=== PATIENT | male | born 1940 | race Caucasian/White ===

== ENCOUNTER 2020-08-25 11:07 | Emergency (ER) | payer MEDICARE ==
[~2020-08-25] VITALS: Ht 182.9 cm; Wt 81.8 kg
[2020-08-25 11:56] LABS: BASOPHILS % (AUTO) 0.3 % (0-1); EOSINOPHILS # (AUTO) 0.1 X10'3 (0-0.9); EOSINOPHILS % (AUTO) 0.8 % (0-6); HEMATOCRIT 38.8 % (42.0-52.0); HEMOGLOBIN 12.8 g/dl (14.0-17.9); LYMPHOCYTES # (AUTO) 0.7 X10'3 (1.1-4.8); LYMPHOCYTES % (AUTO) 5.5 % (21-51); MEAN CORPUSCULAR HEMOGLOBIN 30.5 PG (27.0-31.0); MEAN CORPUSCULAR HGB CONC 32.9 g/dL (33.0-36.5); MEAN CORPUSCULAR VOLUME 92.6 FL (78-98); MEAN PLATELET VOLUME 9.1 FL (7.4-10.4); MONOCYTES # (AUTO) 0.9 X10'3 (0-0.9); NEUTROPHILS # (AUTO) 10.1 X10'3 (1.8-7.7); NEUTROPHILS % (AUTO) 85.4 % (42-75); PLATELET COUNT 281 X10'3 (140-440); RED BLOOD COUNT 4.19 X10'6 (4.70-6.10); RED CELL DISTRIBUTION WIDTH 13.9 % (11.5-14.5); WHITE BLOOD COUNT 11.8 X10'3 (4.5-11.0)
[2020-08-25] MEDS ORDERED: normal saline 1000ML IV soln IVB ONE (12:05)
[2020-08-25] MEDS ORDERED: pantoprazole 40 MG vial IV ONE (12:05)
[2020-08-25 12:10] LABS: ALANINE AMINOTRANSFERASE 41 U/L (12-78); ALBUMIN 2.8 G/DL (3.4-5.0); ALBUMIN/GLOBULIN RATIO 0.6 (1.1-1.5); ALKALINE PHOSPHATASE 107 IU/L (46-116); ANION GAP 11 (8-16); ASPARTATE AMINO TRANSFERASE 44 U/L (10-37); BILIRUBIN,TOTAL 0.8 MG/DL (0.1-1.0); BLOOD UREA NITROGEN 28 MG/DL (7-18); BUN/CREATININE RATIO 21.5 (5.4-32.0); CALCIUM 9.1 MG/DL (8.5-10.1); CHLORIDE 100 MMOL/L (99-107); GLUCOSE 167 MG/DL (70-104); LIPASE 143 U/L (73-393); POTASSIUM 4.6 MMOL/L (3.5-5.1); SODIUM 137 MMOL/L (135-145); TOTAL PROTEIN 7.5 G/DL (6.4-8.2); eGFR 53 ML/MIN
[2020-08-25 12:39] LABS: PARTIAL THROMBOPLASTIN TIME 22 SECONDS (22-32)
--- NOTE | 2020-08-25 12:47 | NUR ---
SID MCGUIRE REPORTS HEMOCULT IS POSITIVE DUE TO PT HAVING HEMORRHOIDS.
--- NOTE | 2020-08-25 12:59 | NUR ---
PT TO CT VIA WHEELCHAIR
[2020-08-25] MEDS ORDERED: ondansetron/PF 4mg/2ml inj IV ONE (13:05)
[2020-08-25] MEDS ORDERED: HYDR25SU32 RC (14:11)
[2020-08-25] MEDS ORDERED: POLY17PO10 PO (14:11)
[2020-08-25 14:22] VITALS: BP 152/82
== END 2020-08-25 14:25 | disposition home or self-care (01) ==
LOC: ER 11:07
DX: S22.070A Wedge compression fracture of T9-T10 vertebra, initial encounter for closed fracture (principal); R18.8 Other ascites; K74.60 Unspecified cirrhosis of liver; K64.9 Unspecified hemorrhoids; K59.00 Constipation, unspecified; I71.4 Abdominal aortic aneurysm, without rupture; R19.7 Diarrhea, unspecified; R06.02 Shortness of breath; F12.90 Cannabis use, unspecified, uncomplicated; Z86.73 Personal history of transient ischemic attack (TIA), and cerebral infarction without residual deficits; Z90.89 Acquired absence of other organs; Z72.89 Other problems related to lifestyle; Z88.0 Allergy status to penicillin; Z79.899 Other long term (current) drug therapy; X58.XXXA Exposure to other specified factors, initial encounter; Y93.89 Activity, other specified; Y92.89 Other specified places as the place of occurrence of the external cause; Y99.8 Other external cause status
CPT/HCPCS: 36415; 74176; 80053; 83690; 83880; 85025; 85610; 85730; 86885; 86900; 86901; 96361; 96374; 96375; 99284; C9113; J2405; J7030

== ENCOUNTER 2020-09-01 14:30 | Inpatient (IN) | payer MEDICARE ==
[~2020-09-01] VITALS: Ht 182.9 cm; Wt 82.0 kg
[~2020-09-01 14:30] MED LIST: HYDR25SU32 RC; POLY17PO10 PO
--- NOTE | 2020-09-01 15:06 | NUR ---
VU MOORE PHONE #[phone]
[2020-09-01 15:24] LABS: BASOPHILS % (AUTO) 0.2 % (0-1); EOSINOPHILS % (AUTO) 0.1 % (0-6); HEMATOCRIT 33.4 % (42.0-52.0); HEMOGLOBIN 10.7 g/dl (14.0-17.9); LYMPHOCYTES # (AUTO) 0.9 X10'3 (1.1-4.8); MEAN CORPUSCULAR HEMOGLOBIN 29.6 PG (27.0-31.0); MEAN CORPUSCULAR HGB CONC 32.2 g/dL (33.0-36.5); MEAN CORPUSCULAR VOLUME 91.9 FL (78-98); MEAN PLATELET VOLUME 10.1 FL (7.4-10.4); MONOCYTES # (AUTO) 1.3 X10'3 (0-0.9); MONOCYTES % (AUTO) 6.9 % (2-12); NEUTROPHILS # (AUTO) 15.8 X10'3 (1.8-7.7); NEUTROPHILS % (AUTO) 87.8 % (42-75); PLATELET COUNT 276 X10'3 (140-440); RED BLOOD COUNT 3.63 X10'6 (4.70-6.10); RED CELL DISTRIBUTION WIDTH 14.1 % (11.5-14.5)
[2020-09-01 15:38] LABS: PARTIAL THROMBOPLASTIN TIME 24 SECONDS (22-32)
[2020-09-01 15:39] LABS: ALANINE AMINOTRANSFERASE 41 U/L (12-78); ALBUMIN 2.5 G/DL (3.4-5.0); ALBUMIN/GLOBULIN RATIO 0.6 (1.1-1.5); ALKALINE PHOSPHATASE 107 IU/L (46-116); ANION GAP 8 (8-16); ASPARTATE AMINO TRANSFERASE 52 U/L (10-37); BILIRUBIN,TOTAL 0.8 MG/DL (0.1-1.0); BLOOD UREA NITROGEN 32 MG/DL (7-18); BUN/CREATININE RATIO 20.8 (5.4-32.0); CALCIUM 8.7 MG/DL (8.5-10.1); CHLORIDE 104 MMOL/L (99-107); CREATININE 1.54 MG/DL (0.60-1.10); GLUCOSE 175 MG/DL (70-104); POTASSIUM 4.7 MMOL/L (3.5-5.1); SODIUM 138 MMOL/L (135-145); TOTAL CARBON DIOXIDE 25.7 MMOL/L (24-32); TOTAL PROTEIN 6.5 G/DL (6.4-8.2); eGFR 44 ML/MIN
[2020-09-01] MEDS ORDERED: pantoprazole 40 MG vial IV ONE (16:05)
[2020-09-01] MEDS ORDERED: acetaminophen 325mg tablet PO PRN ×2 (17:25)
[2020-09-01] MEDS ORDERED: ondansetron/PF 4mg/2ml inj IV PRN (17:25)
[2020-09-01] MEDS ORDERED: morphine 2 MG/ML inj. syringe IV PRN ×2 (17:25)
[2020-09-01] MEDS ORDERED: magnesium hydroxide 30ml (MOM) UD suspension PO PRN (17:25)
[2020-09-01] MEDS ORDERED: mag hydrox/Alum hydrox/simeth 30ml oral suspension PO PRN (17:25)
[2020-09-01] MEDS ORDERED: PEG 3350/Na sulf,bicarb,Cl/KCl oral sol 4 liter bottle PO ONE (17:25)
[2020-09-01] MEDS ORDERED: METF-950 PO (17:33)
[2020-09-01] MEDS ORDERED: LOSA50TA64 PO (17:33)
[2020-09-01] MEDS: dextrose 5%-1/2 normal saline 1,000 ML IV SCH (18:24)
[2020-09-01 18:30] LABS: HEMOGLOBIN A1C 6.1 % (4.5-6.2)
[2020-09-01 18:59] LABS: CLARITY,URINE CLEAR (Clear); COLOR,URINE YELLOW (Yellow); GLUCOSE, URINE NEGATIVE (Neg); KETONES,URINE TRACE mg/dl (Neg); LEUKOCYTE ESTERASE ,URINE NEGATIVE (Neg); NITRITES, URINE NEGATIVE (Neg); OCCULT BLOOD,URINE NEGATIVE (Neg); PH,URINE 5.5 (4.8-8.0); PROTEIN,URINE TRACE mg/dl (Neg)
[2020-09-01 19:00] LABS: UA COLLECTION TYPE URINAL
[2020-09-01 19:07] LABS: BACTERIA,URINE 1+ /HPF (Neg); RBC,URINE NONE SEEN /HPF (0-2); SQUAMOUS EPITHELIAL CELL,UR MODERATE /LPF (FEW); WBC,URINE 0-4 /HPF (0-4)
[2020-09-01 19:08] LABS: HYALINE CASTS 0-3 /LPF (NEGATIVE)
--- NOTE | 2020-09-01 19:19 | NUR ---
Orthostatic VS +. Dr. Oconnell updated. Awaiting to get Golytly started.
[2020-09-01] MEDS: pantoprazole 40 MG vial IV SCH (20:09)
--- NOTE | 2020-09-01 21:46 | NUR ---
IPA 358B. PT UP ON BSC NOW WITH MORE STOOL. REPORTS HE DOES NOT WANT TO DRINK ANY MORE OF THE SOLUTION. I UPDATED HIM IT IS NECESSARY FOR HIM TO HAVE CLEAR LIQUID OUT PUT IN ORDER FOR THE COLONOSCOPY. PT HAVING INCONTINENCE OF STOOL EPISODES. SATES HE WILL TRY TO CONTINUE TO DRINK IT.
--- NOTE | 2020-09-01 22:25 | NUR ---
REPORT GIVEN TO FIDELINA SHARMA, SURGICAL. PT WITH HR 107, OTHERWISE VSS. IPA 358B.
--- NOTE | 2020-09-01 22:35 | NUR ---
Received report from FIDELINA Solo. Pt brought to room via horace, ruben to bathroom gait steady. large liq brown stool voided. partial bed bath given, amb to bed, oriented to room and routine. Addendum: 09/02/20 at 0055 by Yady Cooper RN Amended: Links added.
[2020-09-01 23:00] VITALS: BP 120/70
[2020-09-02] VITALS (17 sets, daily range): BP systolic 111–165; BP diastolic 42–84
--- NOTE | 2020-09-02 00:58 | NUR ---
turns self with ease, no complaints. pt continues to drink go lightly Addendum: 09/02/20 at 0059 by Yady Cooper RN Amended: Links added.
[2020-09-02] MEDS: dextrose 5%-1/2 normal saline 1,000 ML IV SCH (03:25)
--- NOTE | 2020-09-02 05:17 | NUR ---
[place] [facility] [place]. had about 1/4 left of himanshu have been enc pt to drink all night, states he is doing the best he can and keeps drinking as much as he can. Addendum: 09/02/20 at 0519 by Yady Cooper RN Amended: Links added.
[2020-09-02 05:59] LABS: BASOPHILS # (AUTO) 0.1 X10'3 (0-0.2); BASOPHILS % (AUTO) 0.4 % (0-1); EOSINOPHILS # (AUTO) 0.1 X10'3 (0-0.9); EOSINOPHILS % (AUTO) 0.3 % (0-6); HEMATOCRIT 28.3 % (42.0-52.0); HEMOGLOBIN 9.2 g/dl (14.0-17.9); LYMPHOCYTES # (AUTO) 1.9 X10'3 (1.1-4.8); LYMPHOCYTES % (AUTO) 11.8 % (21-51); MEAN CORPUSCULAR HEMOGLOBIN 29.8 PG (27.0-31.0); MEAN CORPUSCULAR HGB CONC 32.6 g/dL (33.0-36.5); MEAN CORPUSCULAR VOLUME 91.6 FL (78-98); MEAN PLATELET VOLUME 10.4 FL (7.4-10.4); MONOCYTES # (AUTO) 1.4 X10'3 (0-0.9); MONOCYTES % (AUTO) 8.7 % (2-12); NEUTROPHILS # (AUTO) 12.4 X10'3 (1.8-7.7); NEUTROPHILS % (AUTO) 78.8 % (42-75); PLATELET COUNT 219 X10'3 (140-440); RED BLOOD COUNT 3.09 X10'6 (4.70-6.10); RED CELL DISTRIBUTION WIDTH 14.1 % (11.5-14.5); WHITE BLOOD COUNT 15.8 X10'3 (4.5-11.0)
[2020-09-02 06:05] LABS: ALBUMIN 2.3 G/DL (3.4-5.0); ANION GAP 9 (8-16); BLOOD UREA NITROGEN 39 MG/DL (7-18); BUN/CREATININE RATIO 23.8 (5.4-32.0); CALCIUM 8.5 MG/DL (8.5-10.1); CHLORIDE 106 MMOL/L (99-107); CREATININE 1.64 MG/DL (0.60-1.10); GLUCOSE 134 MG/DL (70-104); POTASSIUM 4.6 MMOL/L (3.5-5.1); SODIUM 141 MMOL/L (135-145); TOTAL CARBON DIOXIDE 25.8 MMOL/L (24-32); eGFR 41 ML/MIN
--- NOTE | 2020-09-02 06:31 | NUR ---
Problems reprioritized. Patient report given, questions answered & plan of care reviewed with FIDELINA Jimenez. Addendum: 09/02/20 at 0631 by Yady Cooper RN Amended: Links added.
--- NOTE | 2020-09-02 06:37 | NUR ---
Patient in room [facility]. I have received report from Brielle KITCHEN and had the opportunity to ask questions and assume patient care.
[2020-09-02] MEDS: pantoprazole 40 MG vial IV SCH ×2 (07:59→20:05)
[2020-09-02 09:11] LABS: OCCULT BLOOD STOOL POSITIVE (Neg)
[2020-09-02 11:45] LABS: GLUCOSE,BODY FLUID 167 MG/DL
--- NOTE | 2020-09-02 11:52 | NUR ---
DM consult: Pt with A1c 6.1%, DM education not warranted at this time. Pt currently NPO, recommend diet advancement to regular as medically indicated. Will continue to follow. Addendum: 09/02/20 at [address] Amended: Links added.
[2020-09-02 12:13] LABS: BF RBC COUNT 140 /CU MM; BF WBC COUNT 160 /CU MM (0-1000); BFAPPEAR CLEAR; BFCOLOR COLORLESS; BFVOLUME 53 ML
[2020-09-02 12:14] LABS: BF MESOTHELIAL CELLS MODERATE; LYMPHOCYTES,BODY FLUID 67 %; MONOCYTES,BODY FLUID 23 %; NEUTROPHILS,BODY FLUID 10 %
[2020-09-02] MEDS ORDERED: MIDAZolam 5mg/5ml vial ONE (12:37)
[2020-09-02] MEDS ORDERED: fentaNYL/PF 50MCG/1 ML 2ML syringe ONE (12:37)
[2020-09-02] MEDS ORDERED: LIDOcaine Viscous 15ml cup ONE (12:38)
[2020-09-02] MEDS ORDERED: albumin (human) 25% 100 ML IV solution IV ONE (14:50)
--- NOTE | 2020-09-02 16:31 | NUR ---
Dr. Dimas paged regarding GI lab results and to clarify Echo order. Awaiting callback.
--- NOTE | 2020-09-02 18:14 | NUR ---
Problems reprioritized. Patient report given, questions answered & plan of care reviewed with Tigist Harris RN.
--- NOTE | 2020-09-02 19:05 | NUR ---
Patient in room [facility]. I have received report from FIDELINA Jimenez and had the opportunity to ask questions and assume patient care. Addendum: 09/02/20 at 1905 by Josselyn Alberts RN Amended: Links added.
[2020-09-02] MEDS: furosemide 20 MG/2 ML vial IV SCH (20:06)
[2020-09-03] VITALS: BP 104/60
[2020-09-03 05:29] LABS: EOSINOPHILS # (AUTO) 0.2 X10'3 (0-0.9); HEMOGLOBIN 7.7 g/dl (14.0-17.9); LYMPHOCYTES # (AUTO) 1.3 X10'3 (1.1-4.8); MEAN CORPUSCULAR HEMOGLOBIN 30.3 PG (27.0-31.0); MEAN CORPUSCULAR HGB CONC 33.4 g/dL (33.0-36.5); MEAN PLATELET VOLUME 9.7 FL (7.4-10.4); MONOCYTES # (AUTO) 1.1 X10'3 (0-0.9)
[2020-09-03 05:31] LABS: BASOPHILS % (AUTO) 0.4 % (0-1); EOSINOPHILS % (AUTO) 1.6 % (0-6); HEMATOCRIT 23.1 % (42.0-52.0); LYMPHOCYTES % (AUTO) 12.4 % (21-51); MEAN CORPUSCULAR VOLUME 90.7 FL (78-98); MONOCYTES % (AUTO) 10.6 % (2-12); PLATELET COUNT 179 X10'3 (140-440); RED BLOOD COUNT 2.55 X10'6 (4.70-6.10); RED CELL DISTRIBUTION WIDTH 13.7 % (11.5-14.5); WHITE BLOOD COUNT 10.7 X10'3 (4.5-11.0)
[2020-09-03 05:45] LABS: ALBUMIN 2.3 G/DL (3.4-5.0); ANION GAP 7 (8-16); BLOOD UREA NITROGEN 36 MG/DL (7-18); BUN/CREATININE RATIO 22.2 (5.4-32.0); CALCIUM 7.8 MG/DL (8.5-10.1); CHLORIDE 103 MMOL/L (99-107); CREATININE 1.62 MG/DL (0.60-1.10); GLUCOSE 124 MG/DL (70-104); POTASSIUM 3.9 MMOL/L (3.5-5.1); SODIUM 136 MMOL/L (135-145); TOTAL CARBON DIOXIDE 25.9 MMOL/L (24-32); eGFR 41 ML/MIN
--- NOTE | 2020-09-03 06:32 | NUR ---
Problems reprioritized. Patient report given, questions answered & plan of care reviewed with FIDELINA Jimenez.
--- NOTE | 2020-09-03 06:38 | NUR ---
Patient in room [facility]. I have received report from Tigist Harris RN and had the opportunity to ask questions and assume patient care.
[2020-09-03 07:13] VITALS: BP 141/61
[2020-09-03] MEDS: pantoprazole 40 MG vial IV SCH ×2 (07:54→20:31)
[2020-09-03] MEDS: furosemide 20 MG/2 ML vial IV SCH ×2 (07:54→20:31)
--- NOTE | 2020-09-03 09:45 | NUR ---
Pt refusing to ambulate at this time. Stated he might try to later.
[2020-09-03] MEDS ORDERED: pneumococcal 23-VAL P-sac vacc 25 mcg/0.5ml vial IMVAC ONE (10:00)
[2020-09-03 11:45] VITALS: BP_SYST 133; BP_SYST 141; BP_DIAS 61; BP_DIAS 66
[2020-09-03] MEDS: HYDROcodone/acetaminophen 5mg/325mg tablet PO PRN ×2 (11:54→20:36)
[2020-09-03 12:43] VITALS: BP 133/66
[2020-09-03 17:12] LABS: BASOPHILS # (AUTO) 0.1 X10'3 (0-0.2); BASOPHILS % (AUTO) 1.1 % (0-1); EOSINOPHILS # (AUTO) 0.2 X10'3 (0-0.9); EOSINOPHILS % (AUTO) 1.4 % (0-6); HEMATOCRIT 25.4 % (42.0-52.0); HEMOGLOBIN 8.3 g/dl (14.0-17.9); LYMPHOCYTES % (AUTO) 8.3 % (21-51); MEAN CORPUSCULAR HEMOGLOBIN 29.7 PG (27.0-31.0); MEAN CORPUSCULAR HGB CONC 32.5 g/dL (33.0-36.5); MEAN CORPUSCULAR VOLUME 91.4 FL (78-98); MEAN PLATELET VOLUME 9.8 FL (7.4-10.4); MONOCYTES % (AUTO) 8.6 % (2-12); NEUTROPHILS # (AUTO) 9.5 X10'3 (1.8-7.7); NEUTROPHILS % (AUTO) 80.6 % (42-75); PLATELET COUNT 205 X10'3 (140-440); RED BLOOD COUNT 2.78 X10'6 (4.70-6.10); WHITE BLOOD COUNT 11.7 X10'3 (4.5-11.0)
[2020-09-03 18:00] VITALS: BP 128/67
--- NOTE | 2020-09-03 18:20 | NUR ---
Patient in room [facility]. I have received report from Barbara KITCHEN and had the opportunity to ask questions and assume patient care.
--- NOTE | 2020-09-03 18:23 | NUR ---
Problems reprioritized. Patient report given, questions answered & plan of care reviewed with Bernarda KITCHEN.
[2020-09-03 20:00] VITALS: BP_SYST 133; BP_SYST 134; BP_DIAS 53; BP_DIAS 62
[2020-09-04] VITALS: BP_SYST 133; BP_SYST 134; BP_DIAS 53; BP_DIAS 62
[2020-09-04 05:09] LABS: ALBUMIN 2.3 G/DL (3.4-5.0); ANION GAP 6 (8-16); BLOOD UREA NITROGEN 38 MG/DL (7-18); BUN/CREATININE RATIO 22.4 (5.4-32.0); CALCIUM 7.5 MG/DL (8.5-10.1); CHLORIDE 103 MMOL/L (99-107); GLUCOSE 121 MG/DL (70-104); POTASSIUM 3.2 MMOL/L (3.5-5.1); SODIUM 135 MMOL/L (135-145); TOTAL CARBON DIOXIDE 26.4 MMOL/L (24-32); eGFR 39 ML/MIN
[2020-09-04 05:10] LABS: BASOPHILS # (AUTO) 0.1 X10'3 (0-0.2); BASOPHILS % (AUTO) 0.6 % (0-1); EOSINOPHILS # (AUTO) 0.2 X10'3 (0-0.9); EOSINOPHILS % (AUTO) 2.3 % (0-6); HEMATOCRIT 24.5 % (42.0-52.0); HEMOGLOBIN 8.1 g/dl (14.0-17.9); LYMPHOCYTES # (AUTO) 1.5 X10'3 (1.1-4.8); LYMPHOCYTES % (AUTO) 14.2 % (21-51); MEAN CORPUSCULAR HEMOGLOBIN 29.8 PG (27.0-31.0); MEAN CORPUSCULAR HGB CONC 32.8 g/dL (33.0-36.5); MEAN CORPUSCULAR VOLUME 90.6 FL (78-98); MEAN PLATELET VOLUME 9.9 FL (7.4-10.4); MONOCYTES # (AUTO) 1.1 X10'3 (0-0.9); MONOCYTES % (AUTO) 10.9 % (2-12); NEUTROPHILS # (AUTO) 7.4 X10'3 (1.8-7.7); PLATELET COUNT 177 X10'3 (140-440); RED BLOOD COUNT 2.71 X10'6 (4.70-6.10); RED CELL DISTRIBUTION WIDTH 13.5 % (11.5-14.5); WHITE BLOOD COUNT 10.3 X10'3 (4.5-11.0)
--- NOTE | 2020-09-04 06:18 | NUR ---
Problems reprioritized. Patient report given, questions answered & plan of care reviewed with Amarilis KITCHEN.
--- NOTE | 2020-09-04 06:32 | NUR ---
Patient in room [facility]. I have received report from FIDELINA Menchaca and had the opportunity to ask questions and assume patient care.
[2020-09-04 07:00] VITALS: BP 122/64
[2020-09-04] MEDS: furosemide 20 MG/2 ML vial IV SCH (08:03)
[2020-09-04] MEDS: pantoprazole 40 MG vial IV SCH (08:04)
[2020-09-04] MEDS: HYDROcodone/acetaminophen 5mg/325mg tablet PO PRN (08:04)
[2020-09-04] MEDS ORDERED: FURO40TA4 PO (10:55)
[2020-09-04] MEDS ORDERED: SPIR100T5 PO (10:55)
[2020-09-04] MEDS ORDERED: METF-950 PO (10:55)
[2020-09-04 11:00] VITALS: BP 115/67
[2020-09-04] MEDS ORDERED: DEXL60CA3 PO (12:04)
[2020-09-04 13:29] LABS: HBSAG SCREEN Negative (Negative); HEPATITIS C ANTIBODY >11.0 s/co ratio (0.0-0.9)
[2020-09-04] MEDS ORDERED: pantoprazole 40mg Tablet.DR PO SCH (20:00)
== END 2020-09-04 16:08 | disposition home or self-care (01) | DRG 432 ==
LOC: ER 14:30 → ED HOLD 17:24 → SUR 3N 22:30
PROVIDERS: ADMIT Internal Medicine; ATTEND Internal Medicine
PROC: 0W9G3ZZ Drainage of Peritoneal Cavity, Percutaneous Approach (ICD-10-PCS; principal; 2020-09-02)
PROC: 3E0234Z Introduction of Serum, Toxoid and Vaccine into Muscle, Percutaneous Approach (ICD-10-PCS; 2020-09-03)
DX: K74.60 Unspecified cirrhosis of liver (principal); I85.11 Secondary esophageal varices with bleeding; K29.61 Other gastritis with bleeding; R18.8 Other ascites; N17.9 Acute kidney failure, unspecified; D62 Acute posthemorrhagic anemia; D72.829 Elevated white blood cell count, unspecified; E11.22 Type 2 diabetes mellitus with diabetic chronic kidney disease; I12.9 Hypertensive chronic kidney disease with stage 1 through stage 4 chronic kidney disease, or unspecified chronic kidney disease; N18.30 Chronic kidney disease, stage 3 unspecified; E88.09 Other disorders of plasma-protein metabolism, not elsewhere classified; F12.90 Cannabis use, unspecified, uncomplicated; K62.89 Other specified diseases of anus and rectum; K72.90 Hepatic failure, unspecified without coma; R14.0 Abdominal distension (gaseous); Z79.84 Long term (current) use of oral hypoglycemic drugs; Z79.899 Other long term (current) drug therapy; Z86.73 Personal history of transient ischemic attack (TIA), and cerebral infarction without residual deficits; Z87.891 Personal history of nicotine dependence; Z90.49 Acquired absence of other specified parts of digestive tract; Z23 Encounter for immunization; Z88.0 Allergy status to penicillin
CPT/HCPCS: 36415; 43239; 45378; 49083; 71045; 80048; 80053; 81001; 82272; 82945; 82948; 83036; 83880; 85025; 85610; 85730; 86803; 86885; 86900; 86901; 87070; 87081; 87340; 89051; 90732; 93306; 99152; 99153; 99285; A4620; C9113; G0378; J1940; J2250; J3010; J7040; P9047

== ENCOUNTER 2020-09-06 08:03 | Emergency (ER) | payer MEDICARE ==
[~2020-09-06] VITALS: Ht 182.9 cm; Wt 81.8 kg
[~2020-09-06 08:03] MED LIST changes: +DEXL60CA3 PO; +FURO40TA4 PO; -HYDR25SU32 RC; +LOSA50TA64 PO; +METF-950 PO; -POLY17PO10 PO; +SPIR100T5 PO
[2020-09-06] MEDS ORDERED: FURO-150 PO (08:21)
[2020-09-06] MEDS ORDERED: METF500T PO (08:21)
[2020-09-06] MEDS ORDERED: SPIR100T5 PO (08:21)
[2020-09-06 08:29] LABS: BASOPHILS # (AUTO) 0.1 X10'3 (0-0.2); BASOPHILS % (AUTO) 0.6 % (0-1); EOSINOPHILS # (AUTO) 0.2 X10'3 (0-0.9); EOSINOPHILS % (AUTO) 1.7 % (0-6); HEMATOCRIT 28.7 % (42.0-52.0); HEMOGLOBIN 9.5 g/dl (14.0-17.9); LYMPHOCYTES # (AUTO) 1.1 X10'3 (1.1-4.8); LYMPHOCYTES % (AUTO) 8.6 % (21-51); MEAN CORPUSCULAR HEMOGLOBIN 30.2 PG (27.0-31.0); MEAN CORPUSCULAR HGB CONC 33.2 g/dL (33.0-36.5); MEAN PLATELET VOLUME 9.2 FL (7.4-10.4); MONOCYTES # (AUTO) 1.4 X10'3 (0-0.9); MONOCYTES % (AUTO) 11.3 % (2-12); NEUTROPHILS # (AUTO) 9.6 X10'3 (1.8-7.7); NEUTROPHILS % (AUTO) 77.8 % (42-75); PLATELET COUNT 259 X10'3 (140-440); RED BLOOD COUNT 3.15 X10'6 (4.70-6.10); RED CELL DISTRIBUTION WIDTH 13.7 % (11.5-14.5); WHITE BLOOD COUNT 12.3 X10'3 (4.5-11.0)
[2020-09-06 08:41] LABS: ALANINE AMINOTRANSFERASE 51 U/L (12-78); ALBUMIN 2.7 G/DL (3.4-5.0); ALBUMIN/GLOBULIN RATIO 0.6 (1.1-1.5); ALKALINE PHOSPHATASE 111 IU/L (46-116); ANION GAP 7 (8-16); ASPARTATE AMINO TRANSFERASE 43 U/L (10-37); BILIRUBIN,TOTAL 0.6 MG/DL (0.1-1.0); BLOOD UREA NITROGEN 27 MG/DL (7-18); BUN/CREATININE RATIO 19.4 (5.4-32.0); CALCIUM 8.5 MG/DL (8.5-10.1); CHLORIDE 102 MMOL/L (99-107); CREATININE 1.39 MG/DL (0.60-1.10); GLUCOSE 168 MG/DL (70-104); LIPASE 175 U/L (73-393); POTASSIUM 3.7 MMOL/L (3.5-5.1); SODIUM 137 MMOL/L (135-145); TOTAL CARBON DIOXIDE 27.9 MMOL/L (24-32); TOTAL PROTEIN 7.2 G/DL (6.4-8.2); eGFR 49 ML/MIN
--- NOTE | 2020-09-06 09:06 | NUR ---
XRAY IN ROOM FOR TEST.
[2020-09-06 09:24] LABS: CLARITY,URINE CLEAR (Clear); COLOR,URINE YELLOW (Yellow); GLUCOSE, URINE NEGATIVE (Neg); KETONES,URINE NEGATIVE (Neg); LEUKOCYTE ESTERASE ,URINE NEGATIVE (Neg); NITRITES, URINE NEGATIVE (Neg); OCCULT BLOOD,URINE NEGATIVE (Neg); PROTEIN,URINE NEGATIVE (Neg); UROBILINOGEN,URINE 0.2 E.U/dL (0.2-1.0)
[2020-09-06 09:25] LABS: UA COLLECTION TYPE CLN CATCH MIDSTREAM
--- NOTE | 2020-09-06 09:34 | NUR ---
SET UP FOR PARACENTISIS.
[2020-09-06 10:51] VITALS: BP 152/77
== END 2020-09-06 11:09 | disposition home or self-care (01) ==
LOC: ER 08:04
DX: R18.8 Other ascites (principal); R53.1 Weakness; I10 Essential (primary) hypertension; E11.9 Type 2 diabetes mellitus without complications; F12.90 Cannabis use, unspecified, uncomplicated; Z86.73 Personal history of transient ischemic attack (TIA), and cerebral infarction without residual deficits; Z90.49 Acquired absence of other specified parts of digestive tract; Z79.899 Other long term (current) drug therapy; Z88.0 Allergy status to penicillin
CPT/HCPCS: 36415; 71045; 80053; 81003; 83690; 85025; 99284

== ENCOUNTER 2020-09-10 12:00 | Emergency (ER) | payer MEDICARE ==
[~2020-09-10] VITALS: Ht 182.9 cm; Wt 81.8 kg
[~2020-09-10 12:00] MED LIST changes: -DEXL60CA3 PO; +FURO-150 PO; -FURO40TA4 PO; -METF-950 PO; +METF500T PO
[2020-09-10 15:11] LABS: BASOPHILS % (AUTO) 0.4 % (0-1); EOSINOPHILS # (AUTO) 0.2 X10'3 (0-0.9); EOSINOPHILS % (AUTO) 1.4 % (0-6); HEMATOCRIT 27.5 % (42.0-52.0); HEMOGLOBIN 9.1 g/dl (14.0-17.9); LYMPHOCYTES # (AUTO) 1.2 X10'3 (1.1-4.8); LYMPHOCYTES % (AUTO) 8.9 % (21-51); MEAN CORPUSCULAR HEMOGLOBIN 29.2 PG (27.0-31.0); MEAN CORPUSCULAR VOLUME 88.5 FL (78-98); MEAN PLATELET VOLUME 8.6 FL (7.4-10.4); MONOCYTES # (AUTO) 1.3 X10'3 (0-0.9); MONOCYTES % (AUTO) 9.5 % (2-12); NEUTROPHILS # (AUTO) 11.2 X10'3 (1.8-7.7); NEUTROPHILS % (AUTO) 79.8 % (42-75); PLATELET COUNT 374 X10'3 (140-440); RED CELL DISTRIBUTION WIDTH 14.6 % (11.5-14.5); WHITE BLOOD COUNT 14.1 X10'3 (4.5-11.0)
[2020-09-10 15:25] LABS: PARTIAL THROMBOPLASTIN TIME 24 SECONDS (22-32)
[2020-09-10 15:27] VITALS: BP 131/77
[2020-09-10 15:28] LABS: ALANINE AMINOTRANSFERASE 39 U/L (12-78); ALBUMIN 2.6 G/DL (3.4-5.0); ALBUMIN/GLOBULIN RATIO 0.5 (1.1-1.5); ALKALINE PHOSPHATASE 114 IU/L (46-116); ANION GAP 6 (8-16); ASPARTATE AMINO TRANSFERASE 34 U/L (10-37); BILIRUBIN,TOTAL 0.6 MG/DL (0.1-1.0); BLOOD UREA NITROGEN 30 MG/DL (7-18); BUN/CREATININE RATIO 21.9 (5.4-32.0); CALCIUM 9.1 MG/DL (8.5-10.1); CHLORIDE 105 MMOL/L (99-107); CREATININE 1.37 MG/DL (0.60-1.10); GLUCOSE 129 MG/DL (70-104); POTASSIUM 4.6 MMOL/L (3.5-5.1); SODIUM 140 MMOL/L (135-145); TOTAL CARBON DIOXIDE 29.5 MMOL/L (24-32); TOTAL PROTEIN 7.4 G/DL (6.4-8.2); eGFR 50 ML/MIN
--- NOTE | 2020-09-10 16:35 | NUR ---
TC FROM BROTHER, TYRONE, FOR CONDITION REPORT. TYRONE SPOKE WITH NURSE AND PROVIDER. BROTHER WILL COME TO [employer] MANAGER PATIENT.
== END 2020-09-10 17:03 | disposition home or self-care (01) ==
LOC: ER 12:00
DX: R18.8 Other ascites (principal); R06.02 Shortness of breath; R14.0 Abdominal distension (gaseous); I10 Essential (primary) hypertension; E11.9 Type 2 diabetes mellitus without complications; F12.90 Cannabis use, unspecified, uncomplicated; Z86.73 Personal history of transient ischemic attack (TIA), and cerebral infarction without residual deficits; Z90.89 Acquired absence of other organs; Z88.0 Allergy status to penicillin; Z79.899 Other long term (current) drug therapy
CPT/HCPCS: 36415; 71045; 80053; 83880; 85025; 85610; 85730; 93005; 99285